=== PATIENT | female | born 1970 | race Caucasian/White ===

== ENCOUNTER → 2016-08-27 | Day surgery (SDC) | payer OTHER ==
[~2016-08-27] VITALS: Ht 167.6 cm; Wt 68.0 kg
[~2016-08-27] MED LIST: ABIL2TAB2 PO; BUPIVACAINE HCL PF 0.5% 30 ML VIAL ONE; CHLORHEXIDINE GLUCONATE 2 % 1 PACK (2 CLOTHS) TOPICAL PRN; CIPR250T52 PO; CIPROFLOXACIN 400 MG PREMIX 200 ML IV SCH; EFFE150C PO; FAMOTIDINE 20 MG/2 ML VIAL ONE; INSULIN HUMAN REGULAR 1,000 UNITS/10 ML VIAL SQ PRN; LACTATED RINGER'S 1000 ML IV PRN; LIDOCAINE HCL 2% 50 ML VIAL ONE; METOPROLOL TARTRATE 25 MG TAB PO PRN; MIDAZOLAM HCL 2 MG/2 ML VIAL ONE; NEOMYCIN/POLYMYXIN 1 ML G.U. IRRIGANT ONE; NORC5TAB PO; PERC7.5T13 PO; POVIDONE IODINE 5% (ANTISEPSIS KIT) 4 APPLICATIONS EACH NARE PRN; PROPOFOL 200 MG/20 ML AMP IV ONE; SODIUM CHLORID 0.9% 500 ML IV PRN
[2016-08-27 07:43] VITALS: BP 114/75; PULSE 54; RESP 18; TEMP 98.2; O2SAT 98
[2016-08-27 08:11] LABS: MEAN CELL VOLUME 89.4 FL (80.0-100.0); MEAN CORPUSCULAR HEMOGLOBIN 30.9 PG (27.0-34.0); MEAN CORPUSCULAR HGB CONC 34.5 % (32.0-36.0); PLATELET COUNT 232 TH/MM3 (150-450); RED CELL DISTRIBUTION WIDTH 12.8 % (11.6-17.2); REVIEW FLAG FINAL; WHITE BLOOD COUNT 8.1 TH/MM3 (4.0-11.0)
[2016-08-27 10:50] VITALS: BP 125/84; PULSE 62; RESP 16; TEMP 98.2; O2SAT 99
--- NOTE | 2016-08-28 14:31 | MP ---
cc: OSCAR GRAVES III, M.D. DATE OF SURGERY: 08/27/2016 PREOPERATIVE DIAGNOSIS Right carpal tunnel syndrome. POSTOPERATIVE DIAGNOSIS Right carpal tunnel syndrome. PROCEDURE Right open carpal tunnel release. SURGEON Oscar Graves III, MD DETAILS OF PROCEDURE The patient was brought into the operating room and placed supine on the operating table. After the correct side and site of surgery were verified by members of each team in the room multiple times including the patient and myself and after adequate preoperative markings and preoperative written consent were verified by everyone and after an adequate preoperative timeout was performed to everyone's satisfaction and after adequate IV sedation had been achieved, the right upper extremity was prepped and draped in the traditional sterile surgical fashion. A 50/50 mixture of 2% Xylocaine and 0.5% plain Marcaine was infiltrated in the skin and subcutaneous tissue and into the carpal tunnel. The limb was exsanguinated using a gentle Tarun wrap. A highly placed well-padded axillary tourniquet was inflated to 200 mmHg for a total of 10 minutes. A longitudinally oriented incision at the base palm within the skin creases was made and carried down through the skin and subcutaneous tissue. Blunt dissection was performed. The palmar fascia was retracted in opposite directions. The transverse carpal ligament was identified and divided in its midline from its proximal most to its distal most extent, completely freeing the carpal tunnel contents. There was an obvious rebound effect on the nerve. There was no evidence of any mass effect anywhere. There was no other anatomic abnormality identified. Thorough irrigation with saline was performed. The skin edges were re-approximated using running interrupted 4-0 nylon sutures. The hand and arm were thoroughly cleansed and dried. Betadine/Adaptic dressings were applied atop the wound followed by a bulky soft dressing. The axillary tourniquet was released after 10 minutes. The hand and all the fingers on the right became immediately soft, pink and warm and had brisk capillary refill of less than two seconds. The patient was awakened from anesthesia and transported to the post-anesthesia care unit awake and in stable condition at the end of the case. The sponge, needle and instrument counts were correct at the end of the case as reported by the nurses in the room. MD SANJUANITA Resendez III /10:06 AM /2:28 PM
== END | disposition home or self-care (01) ==
LOC: PHSDC 06:05
PROVIDERS: ATTEND Orthopaedic Surgery Hand Surgery
DX: G56.01 Carpal tunnel syndrome, right upper limb (principal); Z88.0 Allergy status to penicillin
CPT/HCPCS: 36415; 64721; 85027; J0744; J2250; J7120